=== PATIENT | male | born 1970 | race Caucasian/White ===

== ENCOUNTER 2021-08-30 15:18 | Emergency (ER) | payer OTHER ==
[2021-08-30 15:34] VITALS: RESP 18
--- NOTE | 2021-08-30 16:44 | ED ---
Alcohol HPI - General Chief Complaint: Alcohol Stated Complaint: ETOH Source: patient, EMS Mode of arrival: EMS Limitations: altered mental status - History of Present Illness Initial Comments: 51 year old male presents for alcohol intoxication. Patient was in rehab and was kicked out today. He went to the gas station and started drinking. He was found outside the [place] on [address] stumbling around. Bystander was concerned that the patient was going to harm himself and therefore EMS was called. The patient cannot tell me how much he drank today. Denies drinking due to depression or self-harm. Denies using any illicit substances. No trauma. Denies head injury. No alleviating, precipitating or modifying factors Review of Systems ROS Statement: Those systems with pertinent positive or pertinent negative responses have been documented in the HPI. ROS Other: All systems not noted in ROS Statement are negative. Past Medical History Past Medical History: No Reported History History of Any Multi-Drug Resistant Organisms: None Reported Past Surgical History: No Surgical Hx Reported Past Psychological History: No Psychological Hx Reported Smoking Status: Current every day smoker Past Alcohol Use History: Daily Past Drug Use History: None Reported General Exam Limitations: altered mental status Course Vital Signs 08/30/21 08/30/21 15:25 21:02 Temperature 98.1 F 98.5 F Pulse Rate 106 H 101 H Respiratory 18 18 Rate Blood Pressure 134/87 131/78 O2 Sat by Pulse 97 97 Oximetry Medical Decision Making - Medical Decision Making Upon arrival patient was placed into room 14. Thorough history and physical exam was performed. Patient does have an etoh of 228. Patient does attempted to call around however cannot find a ride. Patient is held until 8:30 PM when he is clinically sober. Patient is able to answer questions appropriately. Will be discharged at this time. Asked him to stop drinking. Follow up with primary care doctor. Return to the emergency department for any new or worsening symptoms. Patient was discharged home ambulatory in stable condition Disposition Clinical Impression: Alcoholic intoxication Disposition: HOME SELF-CARE Condition: Stable Instructions (If sedation given, give patient instructions): Alcohol Intoxication (ED) Additional Instructions: Please stop drinking. Follow up with your PCP in 2-4 days. Return to the ED for any new or worsening symptoms. Is patient prescribed a controlled substance at d/c from ED?: No Referrals: None,Stated [Primary Care Provider] - 1-2 days Time of Disposition: 20:30
[2021-08-30 21:05] VITALS: BP 131/78; PULSE 101; TEMP 98.5
== END 2021-08-30 20:30 | disposition home or self-care (01) ==
LOC: EC 15:18
DX: F10.129 Alcohol abuse with intoxication, unspecified (principal); F17.200 Nicotine dependence, unspecified, uncomplicated; Y90.7 Blood alcohol level of 200-239 mg/100 ml
CPT/HCPCS: 82075; 99284

== ENCOUNTER 2021-09-01 02:11 | Emergency (ER) | payer OTHER ==
[2021-09-01 02:19] VITALS: BP 152/103; PULSE 99; RESP 20; TEMP 97.9
--- NOTE | 2021-09-01 05:41 | ED ---
Alcohol HPI - General Chief Complaint: Alcohol Stated Complaint: Alcohol Time Seen by Provider: 09/01/21 02:31 Source: patient Mode of arrival: ambulatory Limitations: no limitations - History of Present Illness MD Complaint: alcohol intoxication Last Drink: just [employer] -: minute(s) Recent Trauma: No Associated Symptoms: denies other symptoms Chronic Alcohol Use: Yes - Related Data Previous Rx's Medication Instructions Recorded Atorvastatin [Lipitor] 20 mg PO DAILY 30 Days tab 09/12/21 Chlorthalidone [Hygroton] 25 mg PO DAILY 30 Days tab 09/12/21 Ferrous Sulfate [Iron (65 MG 325 mg PO BID 30 Days tab 09/12/21 Elemental)] Glimepiride [Amaryl] 1 mg PO AC-BRKFST 30 Days tab 09/12/21 Metoprolol Succinate (ER) [Toprol 25 mg PO DAILY 30 Days tablet 09/12/21 XL] Nicotine 14Mg/24Hr Patch [Habitrol] 1 patch TRANSDERM DAILY 30 Days 09/12/21 patch OLANZapine [ZyPREXA] 5 mg PO TID 30 Days tab 09/12/21 amLODIPine [Norvasc] 10 mg PO HS 30 Days tab 09/12/21 lisinopriL [Zestril] 40 mg PO DAILY 30 Days tab 09/12/21 metFORMIN HCL [Glucophage] 1,000 mg PO AC-BID 30 Days tab 09/12/21 Allergies Allergy/AdvReac Type Severity Reaction Status Date / Time Penicillins Allergy Rash/Hives Verified 09/07/21 11:44 Review of Systems ROS Statement: Those systems with pertinent positive or pertinent negative responses have been documented in the HPI. ROS Other: All systems not noted in ROS Statement are negative. Constitutional: Denies: fever, weakness Respiratory: Denies: cough, dyspnea Cardiovascular: Denies: chest pain, palpitations Gastrointestinal: Reports: vomiting. Denies: abdominal pain, diarrhea Genitourinary: Denies: dysuria, hematuria Neurological: Denies: headache Past Medical History Past Medical History: Diabetes Mellitus, Hypertension History of Any Multi-Drug Resistant Organisms: None Reported Past Surgical History: No Surgical Hx Reported Past Psychological History: No Psychological Hx Reported Smoking Status: Current every day smoker Past Alcohol Use History: Daily Past Drug Use History: None Reported General Exam Limitations: no limitations General appearance: alert, in no apparent distress, appears intoxicated Head exam: Present: atraumatic, normocephalic Eye exam: Present: normal appearance. Absent: scleral icterus, conjunctival injection Neck exam: Present: normal inspection, full ROM Respiratory exam: Present: normal lung sounds bilaterally. Absent: respiratory distress, wheezes, rales, rhonchi, stridor Cardiovascular Exam: Present: regular rate, normal rhythm, normal heart sounds. Absent: systolic murmur, diastolic murmur, rubs, gallop GI/Abdominal exam: Present: soft. Absent: distended, tenderness, guarding, rebound, rigid, mass Extremities exam: Present: normal inspection, normal capillary refill. Absent: pedal edema, calf tenderness Back exam: Present: normal inspection. Absent: CVA tenderness (R), CVA tenderness (L) Neurological exam: Present: alert Skin exam: Present: warm, dry, intact, normal color. Absent: rash Course Vital Signs 09/01/21 02:15 Temperature 97.9 F Pulse Rate 99 Respiratory 20 Rate Blood Pressure 152/103 Disposition Clinical Impression: Alcoholic intoxication Disposition: HOME SELF-CARE Condition: Good Instructions (If sedation given, give patient instructions): Alcohol Intoxication (ED) Is patient prescribed a controlled substance at d/c from ED?: No Referrals: None,Stated [Primary Care Provider] - 1-2 days
== END 2021-09-01 06:30 | disposition home or self-care (01) ==
LOC: EC 02:11
DX: F10.129 Alcohol abuse with intoxication, unspecified (principal); E11.9 Type 2 diabetes mellitus without complications; I10 Essential (primary) hypertension; F17.200 Nicotine dependence, unspecified, uncomplicated; Z88.0 Allergy status to penicillin; Z79.84 Long term (current) use of oral hypoglycemic drugs; Z79.899 Other long term (current) drug therapy; Y90.9 Presence of alcohol in blood, level not specified
CPT/HCPCS: 99283

== ENCOUNTER 2021-09-01 07:20 | Emergency (ER) | payer OTHER ==
[2021-09-01 07:25] VITALS: RESP 18; TEMP 97.8
[2021-09-01] MEDS ORDERED: SODIUM CHLORIDE 0.9% 1,000 ML with THIAMINE 100 MG, FOLIC ACID 1 MG IV ONE ×3 (07:53)
[2021-09-01] MEDS ORDERED: SODIUM CHLORIDE 0.9% 1,000 ML IV STA (07:53)
[2021-09-01] MEDS ORDERED: ONDANSETRON 4 MG/2 ML VIAL IVP STA (07:53)
--- NOTE | 2021-09-01 07:59 | ED ---
Alcohol HPI - General Chief Complaint: Alcohol Stated Complaint: Alcohol withdrawl Time Seen by Provider: 09/01/21 07:35 Source: patient, RN notes reviewed, old records reviewed Mode of arrival: ambulatory Limitations: no limitations - History of Present Illness Initial Comments: 51-year-old male with a history of diabetes hypertension alcohol intoxication and abuse who presents with complaints of lightheadedness dizziness nausea vomiting he states last alcohol consumption was 8 PM last evening. He is not sure exactly much alcohol he drinks. He states he is desiring rehab. He states he has not taken his medication past several days. No trauma reported no history of gastritis or pancreatitis. He is feeling shaky. No other complaints or modifying factors at this time MD Complaint: alcohol intoxication, alcohol withdrawal, alcohol dependence, desires rehab - Related Data Allergies Allergy/AdvReac Type Severity Reaction Status Date / Time Penicillins Allergy Rash/Hives Verified 09/01/21 07:25 Review of Systems ROS Statement: Those systems with pertinent positive or pertinent negative responses have been documented in the HPI. ROS Other: All systems not noted in ROS Statement are negative. Past Medical History Past Medical History: Diabetes Mellitus, Hypertension History of Any Multi-Drug Resistant Organisms: None Reported Past Surgical History: No Surgical Hx Reported Additional Past Surgical History / Comment(s): gastric bypas. Past Psychological History: No Psychological Hx Reported Smoking Status: Current every day smoker Past Alcohol Use History: Daily Past Drug Use History: None Reported General Exam - General Exam Comments Initial Comments: This is a well-developed well-nourished awake alert oriented times 3 male Limitations: no limitations General appearance: alert, anxious Head exam: Present: atraumatic, normocephalic, normal inspection Eye exam: Present: normal appearance, PERRL, EOMI. Absent: scleral icterus, conjunctival injection, periorbital swelling ENT exam: Present: mucous membranes dry Neck exam: Present: normal inspection, full ROM. Absent: tenderness, meningismus, lymphadenopathy Respiratory exam: Present: normal lung sounds bilaterally. Absent: respiratory distress, wheezes, rales, rhonchi, stridor Cardiovascular Exam: Present: normal rhythm, tachycardia, normal heart sounds. Absent: systolic murmur, diastolic murmur, rubs, gallop, clicks GI/Abdominal exam: Present: soft, normal bowel sounds. Absent: distended, tenderness, guarding, rebound, rigid, bruit, pulsatile mass Extremities exam: Present: normal inspection, full ROM, normal capillary refill. Absent: tenderness, pedal edema, joint swelling, calf tenderness Back exam: Present: normal inspection Neurological exam: Present: alert, oriented X3, CN II-XII intact Psychiatric exam: Present: normal affect, normal mood Skin exam: Present: warm, dry, intact, normal color. Absent: rash Course Vital Signs 09/01/21 09/01/21 09/01/21 07:22 07:40 08:14 Temperature 97.8 F Pulse Rate 131 H 110 H 105 H Respiratory 18 Rate Blood Pressure 144/105 O2 Sat by Pulse 98 Oximetry 09/01/21 09/01/21 08:45 10:56 Temperature Pulse Rate 93 102 H Respiratory 18 18 Rate Blood Pressure 155/96 152/102 O2 Sat by Pulse 95 100 Oximetry Medical Decision Making - Medical Decision Making The patient is awake alert oriented history does demonstrate adequate decision- making capacity he would like to leave at this time he will see room in a homeless long-term. Return parameters discussed - Lab Data Result diagrams: 09/01/21 07:56 09/01/21 07:56 Lab Results 09/01/21 09/01/21 Range/Units 07:56 07:56 WBC 7.4 (3.8-10.6) k/uL RBC 4.63 (4.30-5.90) m/uL Hgb 14.1 (13.0-17.5) gm/dL Hct 42.3 (39.0-53.0) % MCV 91.2 (80.0-100.0) fL MCH 30.5 (25.0-35.0) pg MCHC 33.5 (31.0-37.0) g/dL RDW 13.2 (11.5-15.5) % Plt Count 277 (150-450) k/uL MPV 7.1 Neutrophils % 68 % Lymphocytes % 21 % Monocytes % 6 % Eosinophils % 3 % Basophils % 0 % Neutrophils # 5.1 (1.3-7.7) k/uL Lymphocytes # 1.5 (1.0-4.8) k/uL Monocytes # 0.5 (0-1.0) k/uL Eosinophils # 0.2 (0-0.7) k/uL Basophils # 0.0 (0-0.2) k/uL Sodium 142 (137-145) mmol/L Potassium 4.2 (3.5-5.1) mmol/L Chloride 106 (98-107) mmol/L Carbon Dioxide 28 (22-30) mmol/L Anion Gap 8 mmol/L BUN 11 (9-20) mg/dL Creatinine 0.68 (0.66-1.25) mg/dL Est GFR (CKD-EPI)AfAm >90 (>60 ml/min/1.73 sqM) Est GFR (CKD-EPI)NonAf >90 (>60 ml/min/1.73 sqM) Glucose 202 H (74-99) mg/dL Calcium 8.8 (8.4-10.2) mg/dL Magnesium 2.2 (1.6-2.3) mg/dL Total Bilirubin 0.4 (0.2-1.3) mg/dL AST 30 (17-59) U/L ALT 23 (4-49) U/L Alkaline Phosphatase 94 (38-126) U/L Creatine Kinase 310 H (55-170) U/L Total Protein 6.8 (6.3-8.2) g/dL Albumin 3.9 (3.5-5.0) g/dL Lipase 139 (23-300) U/L Disposition Clinical Impression: Alcohol use Disposition: HOME SELF-CARE Condition: Good Instructions (If sedation given, give patient instructions): Abuse of Alcohol (ED), At-Risk Alcohol Use (ED) Is patient prescribed a controlled substance at d/c from ED?: No Referrals: None,Stated [Primary Care Provider] - 1-2 days
[2021-09-01] MEDS ORDERED: MULTIVITAMINS, THERA 1 EACH TAB PO ONE (08:00)
[2021-09-01 08:11] LABS: Basophils % (A) 0 %; Eosinophils # (A) 0.2 k/uL (0-0.7); Eosinophils % (A) 3 %; HCT 42.3 % (39.0-53.0); HGB 14.1 gm/dL (13.0-17.5); Lymphocytes # (A) 1.5 k/uL (1.0-4.8); Lymphocytes % (A) 21 %; MCH 30.5 pg (25.0-35.0); MCHC 33.5 g/dL (31.0-37.0); MCV 91.2 fL (80.0-100.0); Mean Platelet Volume 7.1; Monocytes # (A) 0.5 k/uL (0-1.0); Monocytes % (A) 6 %; Neutrophils # (A) 5.1 k/uL (1.3-7.7); Neutrophils % (A) 68 %; Platelet Count 277 k/uL (150-450); RBC 4.63 m/uL (4.30-5.90); RDW 13.2 % (11.5-15.5); WBC 7.4 k/uL (3.8-10.6)
[2021-09-01 08:24] LABS: ALT 23 U/L (4-49); AST 30 U/L (17-59); African American GFR (CKD) >90 (>60 ml/min/1.73 sqM); Albumin 3.9 g/dL (3.5-5.0); Alkaline Phosphatase 94 U/L (38-126); Anion Gap 8 mmol/L; Blood Urea Nitrogen 11 mg/dL (9-20); Calcium 8.8 mg/dL (8.4-10.2); Carbon Dioxide 28 mmol/L (22-30); Chloride 106 mmol/L (98-107); Creatine Kinase 310 U/L (55-170); Glucose 202 mg/dL (74-99); Lipase 139 U/L (23-300); Magnesium 2.2 mg/dL (1.6-2.3); Non-African American GFR(CKD) >90 (>60 ml/min/1.73 sqM); Potassium 4.2 mmol/L (3.5-5.1); Sodium 142 mmol/L (137-145); Total Bilirubin 0.4 mg/dL (0.2-1.3); Total Protein 6.8 g/dL (6.3-8.2)
[2021-09-01 10:57] VITALS: BP 152/102; PULSE 102
== END 2021-09-01 11:20 | disposition home or self-care (01) ==
LOC: EC 07:20
DX: F10.239 Alcohol dependence with withdrawal, unspecified (principal); E11.9 Type 2 diabetes mellitus without complications; I10 Essential (primary) hypertension; F17.200 Nicotine dependence, unspecified, uncomplicated; Z88.0 Allergy status to penicillin; Y90.9 Presence of alcohol in blood, level not specified
CPT/HCPCS: 36415; 93005; 80053; 82550; 83690; 83735; 85025; 99284; 96365; 96366 ×2; 96375; J3411; J2405

== ENCOUNTER 2021-09-03 22:08 | Emergency (ER) | payer OTHER ==
[2021-09-03 22:43] VITALS: RESP 18
--- NOTE | 2021-09-03 22:50 | ED ---
Psych HPI - General Chief Complaint: Psychiatric Symptoms Stated Complaint: Mental Health, ETOH Time Seen by Provider: 09/03/21 22:45 Source: patient, EMS, RN notes reviewed, old records reviewed Mode of arrival: EMS Limitations: no limitations - History of Present Illness Initial Comments: This is a 51-year-old male DF for evaluation patient presents here for psychiatric illness. Patient states he has history of depression, states that he is depressed currently. Patient has no other significant history no significant medical history. Patient states she does not want to live anymore MD Complaint: suicidal ideation, feels depressed -: days(s) Associated Psychiatric Symptoms: depression, suicidal ideation History of same: Yes Quality: constant Improves With: none Context: recent alcohol abuse Associated Symptoms: denies other symptoms Treatments Prior to Arrival: placed on mental health hold If Self Harm: admits thoughts of self harm - Related Data Home Medications Medication Instructions Recorded Confirmed Atorvastatin Calcium [Lipitor] 20 mg PO DAILY 09/03/21 09/03/21 Ferrous Sulfate [Feosol] 325 mg PO BID 09/03/21 09/03/21 amLODIPine [Norvasc] 5 mg PO DAILY 09/03/21 09/03/21 hydrOXYzine pamoate [hydrOXYzine 50 mg PO BID PRN 09/03/21 09/03/21 PAMOATE] lisinopriL 40 mg PO DAILY 09/03/21 09/03/21 metFORMIN HCL [Glucophage] 1,000 mg PO BID 09/03/21 09/03/21 Allergies Allergy/AdvReac Type Severity Reaction Status Date / Time Penicillins Allergy Rash/Hives Verified 09/03/21 23:26 Review of Systems ROS Statement: Those systems with pertinent positive or pertinent negative responses have been documented in the HPI. ROS Other: All systems not noted in ROS Statement are negative. Past Medical History Past Medical History: Diabetes Mellitus, Hypertension History of Any Multi-Drug Resistant Organisms: None Reported Past Surgical History: No Surgical Hx Reported Additional Past Surgical History / Comment(s): gastric bypass, Vasectomy, Past Psychological History: Depression Smoking Status: Current every day smoker Past Alcohol Use History: Daily Past Drug Use History: Marijuana General Exam Limitations: no limitations General appearance: appears intoxicated Head exam: Present: atraumatic, normocephalic, normal inspection Eye exam: Present: normal appearance, PERRL, EOMI. Absent: scleral icterus, conjunctival injection, periorbital swelling ENT exam: Present: normal exam, mucous membranes moist Neck exam: Present: normal inspection. Absent: tenderness, meningismus, lymphadenopathy Respiratory exam: Present: normal lung sounds bilaterally. Absent: respiratory distress, wheezes, rales, rhonchi, stridor Cardiovascular Exam: Present: regular rate, normal rhythm, normal heart sounds. Absent: systolic murmur, diastolic murmur, rubs, gallop, clicks GI/Abdominal exam: Present: soft, normal bowel sounds. Absent: distended, tenderness, guarding, rebound, rigid Extremities exam: Present: normal inspection, full ROM, normal capillary refill. Absent: tenderness, pedal edema, joint swelling, calf tenderness Back exam: Present: normal inspection Neurological exam: Present: alert, oriented X3, CN II-XII intact Psychiatric exam: Present: normal affect, normal mood Skin exam: Present: warm, dry, intact, normal color. Absent: rash Course Vital Signs 09/03/21 09/03/21 09/04/21 22:34 23:58 02:00 Temperature 98.3 F Pulse Rate 100 Respiratory 18 18 18 Rate Blood Pressure 147/87 O2 Sat by Pulse 97 Oximetry 09/04/21 03:00 Temperature Pulse Rate Respiratory 18 Rate Blood Pressure O2 Sat by Pulse Oximetry - Reevaluation(s) Reevaluation #1: 09/03/21 23:28 Medical records reviewed Disposition Clinical Impression: Alcoholic intoxication, Alcohol use Disposition: HOME SELF-CARE Condition: Fair Instructions (If sedation given, give patient instructions): Alcohol Intoxication (ED) Is patient prescribed a controlled substance at d/c from ED?: No Referrals: None,Stated [Primary Care Provider] - 1-2 days
[2021-09-04] MEDS ORDERED: LORazepam 1 MG TAB PO STA (05:53)
[2021-09-04] MEDS ORDERED: cloNIDine 0.3 MG/24HR PATCH TRANSDERM STA (05:53)
[2021-09-04 06:04] VITALS: BP 194/103; PULSE 111; TEMP 98.6
== END 2021-09-04 06:04 | disposition home or self-care (01) ==
LOC: EC 22:08
DX: F10.129 Alcohol abuse with intoxication, unspecified (principal); I10 Essential (primary) hypertension; E11.9 Type 2 diabetes mellitus without complications; F17.200 Nicotine dependence, unspecified, uncomplicated; F12.90 Cannabis use, unspecified, uncomplicated; Z79.84 Long term (current) use of oral hypoglycemic drugs; Z88.0 Allergy status to penicillin; Y90.9 Presence of alcohol in blood, level not specified
CPT/HCPCS: 82075; 99284

== ENCOUNTER 2021-09-06 21:29 | Inpatient (IN) | payer MEDICAID, OTHER ==
--- NOTE | 2021-09-06 21:53 | ED ---
General Adult HPI - General Source: patient, police, RN notes reviewed, old records reviewed Mode of arrival: wheelchair Limitations: no limitations <Tejas Howard - Last Filed: 09/06/21 21:51> <Tejas Berry - Last Filed: 09/07/21 12:38> - General Chief complaint: Psychiatric Symptoms Stated complaint: Mental Health Time Seen by Provider: 09/06/21 21:45 - History of Present Illness Initial comments: 51-year-old male brought in for alcohol intoxication, suicidal ideation. He has been petitioned by local police. Patient is currently homeless, admits to alcohol consumption and states that he plans to commit suicide by hanging. Patient has no physical complaints time my evaluation. (Tejas Howard) - Related Data Home Medications Medication Instructions Recorded Confirmed Atorvastatin Calcium [Lipitor] 20 mg PO DAILY 09/03/21 09/07/21 Ferrous Sulfate [Feosol] 325 mg PO BID 09/03/21 09/07/21 amLODIPine [Norvasc] 5 mg PO DAILY 09/03/21 09/07/21 hydrOXYzine pamoate [hydrOXYzine 50 mg PO BID 09/03/21 09/07/21 PAMOATE] lisinopriL 40 mg PO DAILY 09/03/21 09/07/21 metFORMIN HCL [Glucophage] 1,000 mg PO AC-BID 09/03/21 09/07/21 Allergies Allergy/AdvReac Type Severity Reaction Status Date / Time Penicillins Allergy Rash/Hives Verified 09/07/21 11:44 Review of Systems ROS Other: All systems not noted in ROS Statement are negative. <Tejas Howard - Last Filed: 09/06/21 21:51> ROS Other: All systems not noted in ROS Statement are negative. <Tejas Berry - Last Filed: 09/07/21 12:38> ROS Statement: Those systems with pertinent positive or pertinent negative responses have been documented in the HPI. Past Medical History Past Medical History: Diabetes Mellitus, Hypertension History of Any Multi-Drug Resistant Organisms: None Reported Past Surgical History: No Surgical Hx Reported Additional Past Surgical History / Comment(s): gastric bypass, Vasectomy, Past Psychological History: Depression Smoking Status: Current every day smoker Past Alcohol Use History: Abuse, Daily Past Drug Use History: Marijuana <Tejas Howard - Last Filed: 09/06/21 21:51> General Exam Limitations: no limitations General appearance: alert, appears intoxicated Head exam: Present: atraumatic, normocephalic Eye exam: Present: normal appearance, PERRL Neck exam: Present: normal inspection. Absent: tenderness, meningismus Respiratory exam: Present: normal lung sounds bilaterally. Absent: respiratory distress, wheezes Cardiovascular Exam: Present: regular rate, normal rhythm GI/Abdominal exam: Present: soft. Absent: distended, tenderness, guarding Extremities exam: Present: normal inspection Neurological exam: Present: alert, oriented X3, CN II-XII intact. Absent: motor sensory deficit Psychiatric exam: Present: depressed, flat affect, suicidal ideation Skin exam: Present: warm, dry, intact. Absent: cyanosis, diaphoretic <Tejas Howard - Last Filed: 09/06/21 21:51> Course <Tejas Howard - Last Filed: 09/06/21 21:51> Vital Signs 09/06/21 09/07/21 09/07/21 21:37 01:24 06:00 Temperature 97.9 F Pulse Rate 117 H 105 H 113 H Respiratory 24 16 16 Rate Blood Pressure 98/66 128/75 148/98 O2 Sat by Pulse 97 94 L 98 Oximetry - Reevaluation(s) Reevaluation #1: 09/06/21 21:52 2300patient care signed out at shift change awaiting sobriety and EPS evaluation to Dr. Cheney. (Tejas Howard) Medical Decision Making <Tejas Berry - Last Filed: 09/07/21 12:38> - Medical Decision Making Patient was determined to be sober and evaluated by the EPS service she will be admitted for inpatient evaluation and treatment (Tejas Berry) Disposition <Tejas Howard - Last Filed: 09/06/21 21:51> <Tejas Berry - Last Filed: 09/07/21 12:38> Clinical Impression: Depression, Suicidal ideation, Alcoholic intoxication Disposition: TRANSFER TO PSYCH HOSP/UNIT Condition: Stable Referrals: None,Stated [Primary Care Provider] - 1-2 days
[2021-09-07] MEDS ORDERED: LORazepam 1 MG TAB PO STA ×2 (12:38→18:10)
[2021-09-07] MEDS ORDERED: ACETAMINOPHEN TAB 325 MG TAB PO PRN (13:31)
[2021-09-07] MEDS ORDERED: MAGNESIUM HYDROXIDE 2,400 MG/10 ML CUP PO PRN (13:31)
[2021-09-07] MEDS ORDERED: MAG HYDROX/AL HYDROX/SIMETH 30 ML CUP PO PRN (13:31)
[2021-09-07] MEDS ORDERED: HALOPERIDOL LACTATE 5 MG/ML 1 ML VIAL IM PRN (13:34)
[2021-09-07] MEDS ORDERED: LORazepam 2 MG/ML INJ IM PRN (13:35)
[2021-09-07] MEDS ORDERED: amLODIPine 5 MG TAB PO STA (14:32)
[2021-09-07] MEDS: metFORMIN 500 MG TAB PO SCH (17:37)
[2021-09-07 17:38] LABS: Glucose,Whole Blood 201 mg/dL (75-99)
[2021-09-07] MEDS: LORazepam 1 MG TAB PO PRN (17:40)
[2021-09-07] MEDS ORDERED: LORazepam 1 MG TAB PO PRN ×2 (17:48)
[2021-09-07] MEDS: lisinopriL 20 MG TAB PO SCH (18:22)
[2021-09-07] MEDS: FERROUS SULFATE 325 MG TAB PO SCH (21:03)
[2021-09-07] MEDS: hydrOXYzine pamoate 25 MG CAP PO PRN (21:03)
[2021-09-07 21:08] LABS: Glucose,Whole Blood 194 mg/dL (75-99)
[2021-09-08 07:40] LABS: Glucose,Whole Blood 160 mg/dL (75-99)
[2021-09-08 08:11] LABS: Basophils % (A) 0 %; Eosinophils # (A) 0.3 k/uL (0-0.7); Eosinophils % (A) 5 %; HCT 39.7 % (39.0-53.0); HGB 12.9 gm/dL (13.0-17.5); Lymphocytes # (A) 1.6 k/uL (1.0-4.8); Lymphocytes % (A) 23 %; MCH 30.5 pg (25.0-35.0); MCHC 32.5 g/dL (31.0-37.0); MCV 93.8 fL (80.0-100.0); Mean Platelet Volume 7.3; Monocytes # (A) 0.5 k/uL (0-1.0); Monocytes % (A) 7 %; Neutrophils # (A) 4.4 k/uL (1.3-7.7); Neutrophils % (A) 64 %; Platelet Count 191 k/uL (150-450); RBC 4.23 m/uL (4.30-5.90)
[2021-09-08] MEDS: NICOTINE 14MG/24HR PATCH TRANSDERM SCH (08:19)
[2021-09-08] MEDS: ATORVASTATIN 20 MG TAB PO SCH (08:19)
[2021-09-08] MEDS: lisinopriL 20 MG TAB PO SCH (08:19)
[2021-09-08] MEDS: metFORMIN 500 MG TAB PO SCH ×2 (08:19→17:53)
[2021-09-08] MEDS: FERROUS SULFATE 325 MG TAB PO SCH ×2 (08:19→20:18)
[2021-09-08] MEDS: amLODIPine 5 MG TAB PO SCH (08:19)
[2021-09-08 08:33] LABS: ALT 36 U/L (4-49); AST 42 U/L (17-59); African American GFR (CKD) >90 (>60 ml/min/1.73 sqM); Albumin 3.4 g/dL (3.5-5.0); Alkaline Phosphatase 120 U/L (38-126); Anion Gap 6 mmol/L; Blood Urea Nitrogen 10 mg/dL (9-20); Calcium 8.6 mg/dL (8.4-10.2); Carbon Dioxide 31 mmol/L (22-30); Chloride 101 mmol/L (98-107); Glucose 146 mg/dL (74-99); Non-African American GFR(CKD) >90 (>60 ml/min/1.73 sqM); Potassium 4.2 mmol/L (3.5-5.1); Sodium 138 mmol/L (137-145); Total Bilirubin 1.1 mg/dL (0.2-1.3); Total Protein 6.3 g/dL (6.3-8.2)
[2021-09-08] MEDS ORDERED: lisinopriL 20 MG TAB PO SCH (09:00)
[2021-09-08 12:34] LABS: Glucose,Whole Blood 134 mg/dL (75-99)
[2021-09-08] MEDS: LORazepam 1 MG TAB PO PRN ×2 (13:01→21:37)
--- NOTE | 2021-09-08 13:29 | HP ---
DATE OF SERVICE: 09/08/2021 HISTORY AND PHYSICAL PSYCHIATRIC ADMISSION NOTE: IDENTIFYING DATA: The patient is a 51-year-old male. He is homeless. He was brought to the ED by police on petition. CHIEF COMPLAINT: The patient was depressed. He had called a friend stating he was suicidal. He has relapsed to drinking. HISTORY OF PRESENTING ILLNESS: The patient has not had a prior psychiatric hospitalization. He has not been receiving any current mental health followup. He notes that he has had long-term issues with alcohol. He has been into two rehab programs. The last rehab program was about 4 months ago in [place]. He said once he left the unit, he continued to remain free of alcohol use until 8 days ago; he relapsed to drinking. He states that in the last 8 days he has been drinking daily a pint to a fifth a day plus 3 or 4 24-ounce beers. He said that when he left the program in [place], he went to [facility], a [facility] house, and was there until he was found to be drinking and then had to leave. He currently is homeless. He notes that he has had long-term problems with alcohol use where he will drink for 3 or 4 days in a row and then may go 2 or 3 weeks without drinking. He says this has been a long-term pattern for him. He notes that he worked at [employer] for 25 years though left in 2013 following receiving two DUIs. 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 He says since 2018 he has not been working. He notes that he has had a lot of problems with poor motivation. He had been prescribed Lexapro 40 mg a day, which he had been taking after he left the rehab program, though he ended up stopping the Lexapro because he did not feel it was helping. He also had been on Topamax though stopped that as well. He notes that his sleeping is poor. He has loss of motivation, energy and interest. He denies any hallucinations or delusional thinking. He notes that he may have infrequent panic attacks though has not had a panic in the last month or more. He was vague about whether he experiences any post-traumatic issues. He does say that his home environment growing up was "an emotional wreck." He currently is not on any psychotropic medications, nor is he receiving any current mental health care. He is admitted for further evaluation. SUBSTANCE USE HISTORY: He has chronic alcohol problems, as noted above. He reports no use of marijuana or other abusive substances. PAST MEDICAL HISTORY: The patient has diagnoses of hypertension, type 2 diabetes, hyperlipidemia, status post gastric bypass, and peripheral neuropathy. MEDICATIONS: Current medications include metformin, lisinopril, Vistaril, Norvasc, ferrous sulfate and Lipitor. FAMILY AND SOCIAL HISTORY: The patient is . He has 4 children and grandchildren. He says he is in touch with 2 of his children though has a distant relationship with those two and minimal relationship with the other two. 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 MENTAL STATUS EXAM: Patient was cooperative. He sat in a somewhat slumped posture. Psychomotor activity was slowed. He gave fair eye contact at best. He answered questions with brief responses. His thoughts were clear and coherent. He was not too spontaneous or interactive. His affect was flat, mood depressed. He was significantly distressed. There was no indication of thought disorder. He was denying thoughts of harm at the time of the interview though acknowledged having suicide thinking that led him to coming into the hospital. On cognitive exam, he did not make much effort to answer formal cognitive questions. He was oriented and alert. Recent and remote memory appeared intact. He was able to give details of recent events consistent with what is documented in the medical record. Insight and judgment were fair, fund of knowledge average. PHYSICAL EXAMINATION: As per medical consultation. ASSESSMENT: This 51-year-old male is diagnosed with alcohol dependence, continuous, and major depression. He has relapsed to alcohol in the last 8 days after at least 8 weeks of being free of all alcohol use. He did reach out to a friend, though otherwise it does sound that social supports are limited. A significant long-term issue is that he has never been able to move beyond his alcohol use for an extended period of time. Strengths include [employer]. Weakness includes relapse to alcohol. DIAGNOSES: 1. Major depression, recurrent, severe, without psychotic features. 2. Alcohol dependence, continuous, with acute alcohol withdrawal. 3. Type 2 diabetes. 4. Hypertension. 5. Hyperlipidemia. 6. Status post gastric bypass. 7. Peripheral neuropathy. RECOMMENDATIONS: Patient will be admitted for comprehensive medical, psychiatric and psychosocial evaluation. We will engage the patient in individual and group therapeutic activities. I will start the patient on Zyprexa 5 mg three times a day. The indication for Zyprexa is to reduce physiologic stress response relating to acute withdrawal issues. We will monitor for alcohol withdrawal issues. I would consider starting Catapres in addition to his other antihypertensives. Last vital signs this morning at 0800 hours include BP 158/90, pulse 86 and regular, temperature 96.8, respirations 16, oxygen saturation 98. I had an extensive discussion with the patient in regard to treatment of acute withdrawal issues, which he currently is dealing with as a primary factor. Along with this it does appear that depression has been a significant issue currently as well as chronically. We discussed that antidepressants have minimal benefit in the first 6 weeks of withdrawal. Given that he had approximately 8 weeks of sobriety and relapse in the last 8 days, I would anticipate that he may not go through a full withdrawal process, though I would anticipate withdrawal issues going on for the next few weeks. We discussed that treatment for depression will be a critical long-term issue. I also discussed working on plans in regard to discharge as well as addressing issues relating to risk for relapse. The patient indicates that he is interested in going to [place] and has made a contact and apparently has an intake scheduled for this coming Friday. We will focus on stabilization and discharge planning. LORRAINE / ALBA: [id number] / ROSANNA
--- NOTE | 2021-09-08 14:26 | CONS ---
CONSULTATION CHIEF COMPLAINT: Major depression. HISTORY OF PRESENT ILLNESS: This is the first known admission for this 51-year-old white male who was petitioned in by the police department. He apparently became very agitated, depressed, and he was intoxicated with alcohol. He is very depressed and is expressing an interest in suicide. He has had a history of hypertension. REVIEW OF SYSTEMS: He has had no headaches, neurologic problems, difficulty with the vision or the hearing, chest pain, palpitations, orthopnea, abdominal pain, nausea, vomiting, melena, hematochezia, jaundice, renal failure, hematuria frequency, urgency, dysuria, etc. He is diabetic. Past medical history, family history, and personal and social histories reveal that he is ALLERGIC TO PENICILLIN. He is on Lipitor, Norvasc, lisinopril, metformin when he takes them. Surgically he has had gastrointestinal bypass. He smokes half pack of cigarettes a day. PHYSICAL EXAMINATION: Blood pressure is 156/98 with a pulse of 83, respirations of 35. He is afebrile. In general he appeared to be awake and alert, in no acute distress. Skin color is normal. Skin is warm and dry. Lymph nodes are not enlarged. Head, ears, eyes, nose, mouth and throat were normal. Neck veins are not distended. Thyroid is not enlarged. Chest is clear. Cardiac exam is normal and the abdomen is soft and nontender. Extremities are normal. Neurologically he is intact. He is admitted to the hospital with diagnoses: 1. Major depression. 2. Chronic alcoholism. 3. Acute alcohol toxicity. 4. Suicidal personality. 5. Hypertension. 6. Diabetes. PLAN: No recommendations for this gentleman's management at this time except to place him back on his usual medications. I will follow his blood pressure and blood sugars. Thank you. Respectfully, Saturnino Fan II, M.D. LORRAINE / ALBA: [id number] /
[2021-09-08 17:53] LABS: Glucose,Whole Blood 135 mg/dL (75-99)
[2021-09-08 18:56] LABS: Chol/HDL Ratio 2.94 Ratio; LDL Cholesterol,Calculated 57.9 mg/dL (0.0-131.0)
[2021-09-08 20:20] LABS: Glucose,Whole Blood 137 mg/dL (75-99)
[2021-09-08] MEDS: hydrOXYzine pamoate 25 MG CAP PO PRN (21:36)
[2021-09-09 07:43] LABS: Glucose,Whole Blood 182 mg/dL (75-99)
[2021-09-09] MEDS: metFORMIN 500 MG TAB PO SCH ×2 (07:52→17:51)
[2021-09-09] MEDS: amLODIPine 5 MG TAB PO SCH (07:52)
[2021-09-09] MEDS: lisinopriL 20 MG TAB PO SCH (07:52)
[2021-09-09] MEDS: FERROUS SULFATE 325 MG TAB PO SCH ×2 (07:52→21:00)
[2021-09-09] MEDS: NICOTINE 14MG/24HR PATCH TRANSDERM SCH (07:52)
[2021-09-09] MEDS: ATORVASTATIN 20 MG TAB PO SCH (07:53)
[2021-09-09 12:46] LABS: Glucose,Whole Blood 125 mg/dL (75-99)
--- NOTE | 2021-09-09 12:59 | PN ---
PROGRESS NOTE CHIEF COMPLAINT: Major depression, hypertension, diabetes. HISTORY OF PRESENT ILLNESS: This gentleman's blood pressure is still elevated. Blood sugars are also slightly high. PHYSICAL EXAMINATION: Chest is clear. Cardiac exam is normal. IMPRESSION: 1. Major depression. 2. Hypertension. 3. Diabetes. PLAN: 1. Add glimepiride 1 mg once a day. 2. Add Toprol 25 mg once a day. 3. Increase amlodipine from 5 to 10 mg once a day. MMODL / IJN: [id number] /
[2021-09-09] MEDS: GLIMEPIRIDE 1 MG TAB PO SCH (14:44)
[2021-09-09] MEDS: METOPROLOL SUCCINATE (ER) 25 MG TAB.ER.24H PO SCH (14:48)
[2021-09-09] MEDS: CHLORTHALIDONE 25 MG TAB PO SCH (14:49)
[2021-09-09 17:48] LABS: Glucose,Whole Blood 123 mg/dL (75-99)
[2021-09-09] MEDS: OLANZapine 5 MG TAB PO SCH ×2 (17:51→20:51)
--- NOTE | 2021-09-09 19:14 | PN ---
PROGRESS NOTE DATE OF SERVICE: 09/08/2021. CHIEF COMPLAINT: The patient was depressed. He had called a friend, stating he was suicidal. He has relapsed to drinking. INTERVAL HISTORY: Patient has been doing fair. He had a quiet day yesterday. He comes out on the unit. He will interact with others. He has been appropriate in his interactions with staff and peers. He has been attending groups. His highest CIWA score was 3 up until 2200 hours, when he then scored a 9. He slept fair last night. Today he has been up. Again he has been attending groups. He seems to be appropriate in his engagement in the groups. It is noteworthy that his three CIWA scores today have all been 8 in addition to his 10 o'clock dose last night of 9. He has not been receiving any Ativan for detox. His vital signs for the most part have been stable. His last vital signs today at 1600 hours include BP 135/70, pulse 105 and regular, temperature 97.6, respirations 16. The patient notes that he does have a fair amount of anxiety. He acknowledges that he tends to minimize some of his problem and says that actually he came to the hospital because he was probably having more issues with depression than he wanted to let on to others. Even with his presentation in the hospital he tends to seem in a controlled calm manner, though he acknowledges that on the inside he is fighting some very significant emotional struggles. He has a negative outlook and seems to be bleak in what he sees is his future. He is quite positive about going to [facility] because he feels that he can get some help in redirecting some of the behavior that he has had over the years. He has been doing fairly well on the outside at least without any significant medication interventions though accepts that medications could be important for him at present. MENTAL STATUS EXAM: Patient sat with a little restlessness. He gave fair eye contact. He answered questions appropriately. His thoughts were clear and coherent. He was spontaneous and interactive. He offered some good insights. His affect was constricted and anxious, his mood depressed. He was moderately distressed. There was no indication of thought disorder. He denied thoughts of harm. Cognition was clear. ASSESSMENT: I will continue the current diagnosis and treatment plan. I will start the patient on Zyprexa 5 mg three times a day. When we talked about medication issues, the patient seemed to be quite relieved that he felt some of his issues of mood difficulties are being recognized. We talked about the indication of Zyprexa to help reduce physiologic stress response relating to acute alcohol withdrawal. There may be benefits to underlying depression as well. I reviewed potential side effects and longer-term concerns relating to metabolics and movement disorder issues. The patient has an intake interview set up for [facility] on Friday, which is when I would anticipate the patient being discharged. We will continue to focus on stabilization and discharge planning. LORRAINE / STEPHENN: [id number] /
[2021-09-09] MEDS: amLODIPine 10 MG TAB PO SCH (21:00)
[2021-09-10] MEDS: NICOTINE 14MG/24HR PATCH TRANSDERM SCH (07:56)
[2021-09-10] MEDS: lisinopriL 20 MG TAB PO SCH (07:56)
[2021-09-10] MEDS: GLIMEPIRIDE 1 MG TAB PO SCH (07:56)
[2021-09-10] MEDS: OLANZapine 5 MG TAB PO SCH ×3 (07:56→20:57)
[2021-09-10] MEDS: FERROUS SULFATE 325 MG TAB PO SCH ×2 (07:57→20:57)
[2021-09-10] MEDS: ATORVASTATIN 20 MG TAB PO SCH (07:57)
[2021-09-10] MEDS: METOPROLOL SUCCINATE (ER) 25 MG TAB.ER.24H PO SCH (07:57)
[2021-09-10] MEDS: metFORMIN 500 MG TAB PO SCH ×2 (07:57→17:42)
[2021-09-10] MEDS: CHLORTHALIDONE 25 MG TAB PO SCH (07:57)
--- NOTE | 2021-09-10 12:51 | P.PN ---
Progress Note - Text Progress Note Date: 09/10/21 Interval History: Patient was seen attending group and was directable and agreeable to speak with writer technical publications in the office. Patient is reporting significant improvement since his hospitalization started. He does report that he was feeling initially very depressed and suicidal but after being admitted to the psychiatric unit has been able to calm down since. He remains future oriented and plans to quit alcohol and has scheduled an intake for rehabilitation this Friday at [facility]. Currently, the patient is not endorsing any suicidal or homicidal ideation, intention, and/or plan. He is not reporting any auditory or visual hallucinations. He is denying any paranoia or other delusions. Patient has been adherent with his medications and is not endorsing any significant side effects at this time. The patient expresses a desire to go to rehabilitation straight from psychiatric unit. Mental Status Exam: General Appearance: Patient appears to be stated age is alert, directable, and cooperative. Behavior: Patient is calmly seated without any agitated behavior. Psychomotor activity is normal. Eye contact is appropriate. Speech: Patient's speech is fluent and nonpressured. Mood/Affect: Mood is improving mildly, affect is congruent and constricted. Suicidality/Homicidality: Patient denies having any suicidal or homicidal ideation, intention, and/or plan. Perceptions: Patient denies any visual hallucinations and denies any auditory hallucinations Though content/process: There is no evidence of any delusional thought content and thought process is linear and goal-directed. Memory and concentration: AOX3, grossly intact for the purposes of this session Judgment and insight: Improving mildly Vital Signs Temp 97.5 F L 09/10/21 07:00 Pulse 72 09/10/21 07:00 Resp 16 09/10/21 07:00 BP 107/59 09/10/21 07:00 Pulse Ox 98 09/08/21 16:00 Intake & Output 09/09/21 09/10/21 09/10/21 18:59 06:59 18:59 Weight 116.8 kg Laboratory Results - Last 24 Hours 09/09/21 17:46 POC Glucose (mg/dL) 123 H POC Glu [employer] ID Joan Edmondson Assessment Passive disorder, recurrent, severe Alcohol use disorder Nicotine dependence Plan: -Patient continues to meet criteria for inpatient psychiatric admission for symptom stabilization and safety. Patient has signed adult voluntary form and medication consent and was placed in patient's chart. -Medications: Zyprexa 5 mg by mouth 3 times a day for mood stabilization/treatment resistant depression -We will decrease CIWA to every shift. -When necessary Ativan and Haldol for agitation/aggression. -NRT - nicotine patch -SW on board for discharge planning. Encouraged the patient to participate in milieu.
[2021-09-10] MEDS: amLODIPine 10 MG TAB PO SCH (20:58)
[2021-09-11] MEDS: NICOTINE 14MG/24HR PATCH TRANSDERM SCH (07:55)
[2021-09-11] MEDS: OLANZapine 5 MG TAB PO SCH ×3 (07:56→20:37)
[2021-09-11] MEDS: CHLORTHALIDONE 25 MG TAB PO SCH (07:56)
[2021-09-11] MEDS: METOPROLOL SUCCINATE (ER) 25 MG TAB.ER.24H PO SCH (07:56)
[2021-09-11] MEDS: lisinopriL 20 MG TAB PO SCH (07:56)
[2021-09-11] MEDS: ATORVASTATIN 20 MG TAB PO SCH (07:56)
[2021-09-11] MEDS: FERROUS SULFATE 325 MG TAB PO SCH ×2 (07:56→20:36)
[2021-09-11] MEDS: metFORMIN 500 MG TAB PO SCH ×2 (07:56→17:53)
[2021-09-11] MEDS: GLIMEPIRIDE 1 MG TAB PO SCH (07:56)
--- NOTE | 2021-09-11 19:48 | PN ---
PROGRESS NOTE DATE OF SERVICE: 09/11/2021 CHIEF COMPLAINT: Depression, hypertension, diabetes. HISTORY OF PRESENT ILLNESS: This gentleman is doing well and his numbers are improved. Blood pressure is now normal as is his blood sugar. PHYSICAL EXAMINATION: Chest is clear. Cardiac exam is normal. Abdomen is soft, nontender. IMPRESSION: 1. Major depression. 2. Hypertension. 3. Diabetes. PLAN: No further adjustment in his program at this time. MMODL / IJN: [id number] /
[2021-09-11] MEDS: amLODIPine 10 MG TAB PO SCH (20:36)
[2021-09-12 06:24] VITALS: TEMP 97.9
[2021-09-12] MEDS: ATORVASTATIN 20 MG TAB PO SCH (07:53)
[2021-09-12] MEDS: lisinopriL 20 MG TAB PO SCH (07:53)
[2021-09-12] MEDS: metFORMIN 500 MG TAB PO SCH (07:53)
[2021-09-12] MEDS: NICOTINE 14MG/24HR PATCH TRANSDERM SCH (07:53)
[2021-09-12] MEDS: FERROUS SULFATE 325 MG TAB PO SCH (07:53)
[2021-09-12] MEDS: METOPROLOL SUCCINATE (ER) 25 MG TAB.ER.24H PO SCH (07:53)
[2021-09-12] MEDS: OLANZapine 5 MG TAB PO SCH (07:53)
[2021-09-12] MEDS: CHLORTHALIDONE 25 MG TAB PO SCH (07:54)
[2021-09-12] MEDS: GLIMEPIRIDE 1 MG TAB PO SCH (07:54)
[2021-09-12 07:57] VITALS: BP 137/71; RESP 20
[2021-09-12 08:57] VITALS: PULSE 104
--- NOTE | 2021-09-12 10:46 | P.PN ---
Progress Note - Text Progress Note Date: 09/11/21 Interval History: Patient was seen attending group and was directable and agreeable to speak with automobile service writer in the office. Patient reported he was doing well. He denies any suicidal or homcidial ideation, intention, and/or plan. He reports no auditroy or visual hallucinations. He denies any issues with sleep or appetite. He reports he is excited to go to rehab tomorrow. Mental Status Exam: General Appearance: Patient appears to be stated age is alert, directable, and cooperative. Behavior: Patient is calmly seated without any agitated behavior. Psychomotor activity is normal. Eye contact is appropriate. Speech: Patient's speech is fluent and nonpressured. Mood/Affect: Mood is improving mildly, affect is congruent and constricted. Suicidality/Homicidality: Patient denies having any suicidal or homicidal ideation, intention, and/or plan. Perceptions: Patient denies any visual hallucinations and denies any auditory hallucinations Though content/process: There is no evidence of any delusional thought content and thought process is linear and goal-directed. Memory and concentration: AOX3, grossly intact for the purposes of this session Judgment and insight: Improving mildly Passive disorder, recurrent, severe Alcohol use disorder Nicotine dependence Plan: -Patient continues to meet criteria for inpatient psychiatric admission for symptom stabilization and safety. Patient has signed adult voluntary form and medication consent and was placed in patient's chart. -Medications: Zyprexa 5 mg by mouth 3 times a day for mood stabilization/treatment resistant depression -We will decrease CIWA to every shift. -When necessary Ativan and Haldol for agitation/aggression. -NRT - nicotine patch -SW on board for discharge planning. Encouraged the patient to participate in milieu.
--- NOTE | 2021-09-12 10:57 | P.DS ---
Providers Date of admission: 09/07/21 13:28 Expected date of discharge: 09/12/21 Attending physician: Jamal Mai MD Consults: 09/07/21 13:31 Consult Physician Routine Consulting Provider: Saturnino Fan Consult Reason/Comments: medical management Do you want consulting provider notified?: Yes Primary care physician: Stated None - Discharge Diagnosis(es) (1) Major depressive disorder, recurrent, severe without psychotic features Current Visit: Yes Status: Acute Priority: High (2) Alcohol use disorder Current Visit: Yes Status: Acute Priority: High (3) Nicotine dependence Current Visit: Yes Status: Chronic Priority: Medium Hospital Course: Admission HPI: Initial psychiatric evaluation was completed by Dr. Crenshaw on 09/08/2021 who wrote: "The patient is a 51-year-old male. He is homeless. He was brought to the emergency department by police on petition. The patient was depressed. He had called a friend stating that he was suicidal. He has relapsed into drinking. The patient has not had a prior psychiatric hospitalization. He has not been receiving any current mental health follow-up. He notes that he has had long- term issues with alcohol. He has been into rehab programs twice before. The last rehab program was about 4 months ago in [place]. He said once he left the unit, he continued to remain free of alcohol use until 8 days ago when he relapsed into drinking. He states that in the last 8 days, he has been drinking approximately a pint to a fifth of liquor per day on top of 3 or 4 beers. He said that when he left the program in [place], he went to a [place], a [place]- quarter house, and was there until he was found to be drinking and then had to leave. He currently is homeless. He notes that he has had long-term problems with alcohol use or he will drink for 3 or 4 days in a row and then may go 2 or 3 weeks without drinking. He says this has been a long-term pattern for him. He notes that he worked at [employer] for 25 years the left in 2013 after receiving 2 DUIs. 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 He says that since 2018, he has not been working. Hehas had lots of problems with poor motivation. He has been previously prescribed Lexapro 40 mg a day which she has been taking since he left upper rehab program. He stopped taking Lexapro because he did not feel it was helpful. The patient has also been on Topamax though stopped that as well. He notes his sleeping is poor. He has loss of motivation, energy, and interest. He denies any hallucinations or delusional thinking. He notes that he may have infrequent panic attacks though has not had any panic attack last month or so. He is vague about whether he expresses any posttraumatic issues. He does state that his home environment growing up was "an emotional wreck." He currently is not on any psychotropic medications, nor is he receiving any current mental health care. He is admitted for further evaluation. Hospital course: Upon admission to the unit patient was initially presenting and a somewhat slumped posture with slow psychomotor activity and poor eye contact. He was also noted to be withdrawn and isolative to himself. Patient was however directable and agreeable to commence treatment. Patient got along well with other patients on the unit and followed unit protocol. Patient was compliant with the medications and denied any side effects throughout hospital course. Patient was started on Zyprexa 5 mg 3 times a day a covering provider in order to reduce his physiological stress response related to his acute withdrawal issues. Patient spoke of his stressors and engaged in therapy both group and individual. Patient was also seen by medical team for history and physical exam. Over the course of the hospitalization, patient displayed significant improvement in regards to his mood and became more future oriented with better insight and judgment. The patient scheduled rehabilitation for his alcohol use for an intake on Friday. The patient was adherent with his medications and reported no significant side effects. The patient was also tapered off his benzodiazepine medication which was used for his alcohol withdrawal. On the day of discharge, the patient is not reporting any suicidal or homicidal ideation, intention, and/or plan. He is not reporting any firearms or other weapons. He is denying any paranoia or other delusions. The patient is future oriented and wishes to quit his alcohol use and attend programs after his discharge from rehabilitation. The patient is going straight to rehab from this facility. The patient was counseled at length on the importance of medication adherence as well as appropriate follow-up. Mental status exam: General Appearance: Patient appears to be stated age is alert, pleasant, and cooperative. Patient is in no acute distress and has fair hygiene and grooming Behavior: Patient is calmly seated without any agitated behavior. Eye contact is appropriate. Psychomotor activity is normal. Speech: Patient's speech is fluent and nonpressured. Mood/Affect: Patient reports their mood is "much better", affect is congruent and euthymic to bright. Suicidality/Homicidality: Patient denies having any suicidal or homicidal ideation intent or plan. Perceptions: Patient denies any auditory or visual hallucinations. Though content/process: There is no evidence of any delusional thought content and thought process is linear and goal-directed. The patient is future oriented. Memory and concentration: AOX3, grossly intact for the purposes of this session. Can spell "WORLD" backwards correctly. Judgment and insight: Improved with guarded prognosis Vital Signs Temp 97.9 F 09/12/21 06:23 Pulse 104 H 09/12/21 08:56 Resp 20 09/12/21 07:52 BP 137/71 09/12/21 07:52 Pulse Ox 98 09/08/21 16:00 Impression: Major depressive disorder, recurrent, severe, without psychosis Alcohol use disorder Nicotine dependence Plan: -Continue with discharge today as patient has improved and stabilized psychiatrically and is not currently an imminent threat to himself and/or others. Patient will remain at chronically elevated risk for harm to self and/or others due to his impulsivity and polysubstance abuse. -Continue medications: Zyprexa 5 mg by mouth 3 times a day for mood stabilization/treatment resistant depression Habitrol patches for nicotine cessation -Patient was counseled on the need for medication compliance and appropriate follow-up at mental health and also primary care for medical issues. Patient verbalized understanding and agreed. -Social work to arrange for and conduct family meeting to ensure safety upon discharge and answer any questions/concerns. Social work also to arrange for patients follow up appointments for psychiatric care along with follow up with primary care provider. -Patient counseled on abstaining from recreational drugs and marijuana and alcohol. Was informed/educated on the adverse effects on their physical and mental health. Patient verbally agreed and understood. The patient will be going to [facility] for alcohol rehabilitation. -Patient was instructed to return to the hospital or seek immediate medical care if their psychiatric or medical symptoms do worsen or reoccur. -Psychoeducation and supportive therapy provided to patient. Risks and benefits of pharmacological treatment versus the risks and benefits of nontreatment weight and discussed. Informed consent discussion held. Common side effects of psychotropics discussed such as, but not limited to headache, GI disturbance, sexual dysfunction, movement disorders, sedation, and orthostatic hypotension. Life threatening and blackbox warnings of prescribed medications also discussed. Potential risks of operating a vehicle or heavy machinery discussed with patient at length. Advised on importance of compliance and a reliable and responsible manner. Patient advised to review FDA consumer labeling of all medications prior to taking. Patient verbalized understanding of potential risks, and agrees with current treatment plan. Patient advised to medically contact physician/emergency personnel if any acute changes in condition occur. Allergies Allergy/AdvReac Type Severity Reaction Status Date / Time Penicillins Allergy Rash/Hives Verified 09/07/21 11:44 Laboratory Results WBC 7.0 k/uL (3.8-10.6) 09/08/21 06:40 RBC 4.23 m/uL (4.30-5.90) L 09/08/21 06:40 Hgb 12.9 gm/dL (13.0-17.5) L 09/08/21 06:40 Hct 39.7 % (39.0-53.0) 09/08/21 06:40 MCV 93.8 fL (80.0-100.0) 09/08/21 06:40 MCH 30.5 pg (25.0-35.0) 09/08/21 06:40 MCHC 32.5 g/dL (31.0-37.0) 09/08/21 06:40 RDW 13.0 % (11.5-15.5) 09/08/21 06:40 Plt Count 191 k/uL (150-450) 09/08/21 06:40 MPV 7.3 09/08/21 06:40 Neutrophils % 64 % 09/08/21 06:40 Lymphocytes % 23 % 09/08/21 06:40 Monocytes % 7 % 09/08/21 06:40 Eosinophils % 5 % 09/08/21 06:40 Basophils % 0 % 09/08/21 06:40 Neutrophils # 4.4 k/uL (1.3-7.7) 09/08/21 06:40 Lymphocytes # 1.6 k/uL (1.0-4.8) 09/08/21 06:40 Monocytes # 0.5 k/uL (0-1.0) 09/08/21 06:40 Eosinophils # 0.3 k/uL (0-0.7) 09/08/21 06:40 Basophils # 0.0 k/uL (0-0.2) 09/08/21 06:40 Sodium 138 mmol/L (137-145) 09/08/21 06:40 Potassium 4.2 mmol/L (3.5-5.1) 09/08/21 06:40 Chloride 101 mmol/L (98-107) 09/08/21 06:40 Carbon Dioxide 31 mmol/L (22-30) H 09/08/21 06:40 Anion Gap 6 mmol/L 09/08/21 06:40 BUN 10 mg/dL (9-20) 09/08/21 06:40 Creatinine 0.67 mg/dL (0.66-1.25) 09/08/21 06:40 Est GFR (CKD-EPI)AfAm >90 (>60 ml/min/1.73 sqM) 09/08/21 06:40 Est GFR (CKD-EPI)NonAf >90 (>60 ml/min/1.73 sqM) 09/08/21 06:40 Glucose 146 mg/dL (74-99) H 09/08/21 06:40 POC Glucose (mg/dL) 123 mg/dL (75-99) H 09/09/21 17:46 POC Glu [employer] Joan Chou 09/09/21 17:[address] Glu mg/dL 163 09/08/21 06:40 Hemoglobin A1c 7.3 % (4.0-6.0) H 09/08/21 06:40 Calcium 8.6 mg/dL (8.4-10.2) 09/08/21 06:40 Total Bilirubin 1.1 mg/dL (0.2-1.3) 09/08/21 06:40 AST 42 U/L (17-59) 09/08/21 06:40 ALT 36 U/L (4-49) 09/08/21 06:40 Alkaline Phosphatase 120 U/L (38-126) 09/08/21 06:40 Total Protein 6.3 g/dL (6.3-8.2) 09/08/21 06:40 Albumin 3.4 g/dL (3.5-5.0) L 09/08/21 06:40 Triglycerides 169.00 mg/dL (0.00-149.00) H 09/08/21 06:40 Cholesterol 139.00 mg/dL (0.00-200.00) 09/08/21 06:40 LDL Cholesterol, Calc 57.9 mg/dL (0.0-131.0) 09/08/21 06:40 VLDL Cholesterol, Calc 33.80 mg/dL (5.00-40.00) 09/08/21 06:40 HDL Cholesterol 47.30 mg/dL (40.00-60.00) 09/08/21 06:40 Cholesterol/HDL Ratio 2.94 Ratio 09/08/21 06:40 TSH 1.260 mIU/L (0.465-4.680) 09/08/21 06:40 Coronavirus (PCR) Not Detected (Not Detectd) 09/07/21 12:17 Patient Condition at Discharge: Stable Plan - Discharge Summary New Discharge Prescriptions: New Glimepiride [Amaryl] 1 mg PO AC-BRKFST 30 Days tab Nicotine 14Mg/24Hr Patch [Habitrol] 1 patch TRANSDERM DAILY 30 Days patch Chlorthalidone [Hygroton] 25 mg PO DAILY 30 Days tab Ferrous Sulfate [Iron (65 MG Elemental)] 325 mg PO BID 30 Days tab amLODIPine [Norvasc] 10 mg PO HS 30 Days tab Metoprolol Succinate (ER) [Toprol XL] 25 mg PO DAILY 30 Days tablet OLANZapine [ZyPREXA] 5 mg PO TID 30 Days tab metFORMIN HCL [Glucophage] 1,000 mg PO AC-BID 30 Days tab Atorvastatin [Lipitor] 20 mg PO DAILY 30 Days tab lisinopriL [Zestril] 40 mg PO DAILY 30 Days tab Discontinued metFORMIN HCL [Glucophage] 1,000 mg PO AC-BID hydrOXYzine pamoate [hydrOXYzine PAMOATE] 50 mg PO BID amLODIPine [Norvasc] 5 mg PO DAILY Ferrous Sulfate [Feosol] 325 mg PO BID lisinopriL 40 mg PO DAILY Atorvastatin Calcium [Lipitor] 20 mg PO DAILY Discharge Medication List Atorvastatin [Lipitor] 20 mg PO DAILY 30 Days tab 09/12/21 [Rx] Chlorthalidone [Hygroton] 25 mg PO DAILY 30 Days tab 09/12/21 [Rx] Ferrous Sulfate [Iron (65 MG Elemental)] 325 mg PO BID 30 Days tab 09/12/21 [Rx] Glimepiride [Amaryl] 1 mg PO AC-BRKFST 30 Days tab 09/12/21 [Rx] Metoprolol Succinate (ER) [Toprol XL] 25 mg PO DAILY 30 Days tablet 09/12/21 [Rx] Nicotine 14Mg/24Hr Patch [Habitrol] 1 patch TRANSDERM DAILY 30 Days patch 09/12/21 [Rx] OLANZapine [ZyPREXA] 5 mg PO TID 30 Days tab 09/12/21 [Rx] amLODIPine [Norvasc] 10 mg PO HS 30 Days tab 09/12/21 [Rx] lisinopriL [Zestril] 40 mg PO DAILY 30 Days tab 09/12/21 [Rx] metFORMIN HCL [Glucophage] 1,000 mg PO AC-BID 30 Days tab 09/12/21 [Rx] Follow up Appointment(s)/Referral(s): [facility] [Outside] - 09/12/21 12:30 pm (intake) None,Stated [Primary Care Provider] - 1-2 days Patient Instructions/Handouts: How to Stop Smoking (DC), Depression (DC), Alcohol Intoxication (DC) Activity/Diet/Wound Care/Special Instructions: Activity and diet as tolerated. Avoid the use of street drugs and alcohol. Take all medications as prescribed. When you are in need of refills on your medications please contact your medical provider and/or outpatient psychiatrist to have this done. Please go to scheduled outpatient appointment for aftercare treatment. If symptoms return or become worse, call the crisis line at and/or go to the nearest emergency room for evaluation. Discharge Disposition: OTHER INSTITUTION NOT DEFINED
== END 2021-09-12 11:12 | disposition other institution (70) | DRG 885 ==
LOC: EC 21:29 → 3MHU 09-07 13:28
PROVIDERS: ADMIT Psychiatry & Neurology Psychiatry; ATTEND Psychiatry & Neurology Psychiatry
PROC: HZ2ZZZZ Detoxification Services for Substance Abuse Treatment (ICD-10-PCS; principal; 2021-09-07)
DX: F33.2 Major depressive disorder, recurrent severe without psychotic features (principal); F10.239 Alcohol dependence with withdrawal, unspecified; R45.851 Suicidal ideations; F10.229 Alcohol dependence with intoxication, unspecified; E11.9 Type 2 diabetes mellitus without complications; E78.5 Hyperlipidemia, unspecified; Z20.822 Contact with and (suspected) exposure to COVID-19; F17.210 Nicotine dependence, cigarettes, uncomplicated; F41.0 Panic disorder [episodic paroxysmal anxiety]; G62.9 Polyneuropathy, unspecified; I10 Essential (primary) hypertension; Z79.84 Long term (current) use of oral hypoglycemic drugs; Z79.899 Other long term (current) drug therapy; Z98.84 Bariatric surgery status; Z88.0 Allergy status to penicillin
CPT/HCPCS: 80053; 80061; 82075; 83036; 84443; 85025; 87635; 99285